=== PATIENT | male | born 1985 | race Caucasian/White ===

== ENCOUNTER 2019-05-17 04:57 | Emergency (ER) | payer SELFPAY ==
[~2019-05-17] VITALS: Ht 167.6 cm; Wt 72.6 kg
[2019-05-17 05:00] VITALS: BP 144/98
--- NOTE | 2019-05-17 05:00 | NUR ---
TO BED # 08 AMBULATORY
--- NOTE | 2019-05-17 05:10 | NUR ---
Dr. Nguyen examining patient.
[2019-05-17] MEDS ORDERED: KETOROLAC 30 MG/ML VIAL IM ONE (05:15)
--- NOTE | 2019-05-17 05:16 | NUR ---
34 Y/O PRESENTS TO ED, C/O OF LEFT SHOULDER PAIN. PT STATES FALLING APPROXIMATELY AT 2300 LAST NIGHT, DENIES ANY HEAD TRAUMA OR LOC. PT STATES L SHOUDLER PAIN IS 8/10 TOOK TYLENOL BUT UNABLE TO RELIEVE PAIN. GOOD ROM ON LEFT SHOULDER. STRONG BILAT OCCUPATIONAL REHABILITATION AIDE STRENGTH. BILAT STRONG RADIAL PULSES. DENIES ANY TINGLING SENSATION ON EXTREMITIES. PT ABLE TO AMBULATE WITH SLOW STEADY GAIT. PT SEEN BY ERMD. WILL CONTINUE TO MONITOR.
[2019-05-17] MEDS ORDERED: KETOROLAC 30 MG/ML VIAL ONE (05:27)
--- NOTE | 2019-05-17 05:30 | NUR ---
ADMINISTERED KETOROLAC 30MG IM ON LEFT DELTOID AT 0520. REASESSED FOR ADVERSE REACTION AT 0530; NADR.
[2019-05-17 05:36] VITALS: BP 135/88
--- NOTE | 2019-05-17 05:36 | NUR ---
PT DISCHARGED WITH PAPERWORK. RX ACETAMINOPHEN AND ROBAXIN FOR PAIN. EDUCATED PT REGARDING MEDICATIONS AND S/E. EDUCATED PT REGARDING D/C DIAGNOSIS AND INSTRUCTIONS. PT VERBALIZED UNDERSTANDING OF TEACHING. TOLD PT TO FOLLOW UP WITH PCP AND WHEN TO RETURN TO ED. PT VSS. ALL QUESTIONS ANSWERED.
== END 2019-05-17 05:36 | disposition home or self-care (01) ==
LOC: MED 04:57
DX: S46.812A Strain of other muscles, fascia and tendons at shoulder and upper arm level, left arm, initial encounter (principal); W08.XXXA Fall from other furniture, initial encounter; Y93.89 Activity, other specified; Y92.89 Other specified places as the place of occurrence of the external cause; Y99.9 Unspecified external cause status
CPT/HCPCS: 99283; J1885